=== PATIENT | female | born 1990 | race Caucasian/White ===

== ENCOUNTER → 2016-07-04 | Outpatient (REF) | payer MEDICAID, OTHER ==
[~2016-07-04] MED LIST: ACET50TA PO; COLA100C PO; IBUP-1114 PO
== END ==
LOC: M LAB REF 16:56
PROVIDERS: ATTEND Advanced Practice Midwife
DX: Z12.4 Encounter for screening for malignant neoplasm of cervix (principal); R87.613 High grade squamous intraepithelial lesion on cytologic smear of cervix (HGSIL)

== ENCOUNTER → 2016-07-22 | Outpatient (REF) | payer MEDICAID, OTHER | LOC: M LAB REF 16:56 | PROVIDERS: ATTEND Obstetrics & Gynecology | DX: R87.613 High grade squamous intraepithelial lesion on cytologic smear of cervix (HGSIL) (principal) ==

== ENCOUNTER → 2016-08-08 | Outpatient (CLI) | payer OTHER ==
--- NOTE | 2016-08-08 15:27 | REP ---
COMPLETE OB ULTRASOUND WITH DETAILED ANATOMY SCREENIN08/08/2016 Clinical history: Supervision of , other normal, second trimester anatomy screen. Comparison: 05/13/2016. First trimester ultrasound. Based on initial ultrasound she would be 19 weeks 2 days, EDC 12/31/2016. Today's study shows single intrauterine gestation in vertex position. Cervix is closed, 4.2 cm long and there is visually normal amniotic fluid volume. There is an anterior grade 0 placenta without previa or abruption. biometry. BPD 4.5 cm = 19 weeks 4 days HC 17.2 cm = 19 weeks 5 days AC 14.9 cm = 20 weeks 1 day FL 3.1 cm = 19 weeks 4 days This gives average ultrasound age of 19 weeks 4 days, EDC 12/29/2016. Estimated weight 319 grams or 11 ounces, is 68th percentile for dating based on initial ultrasound (19 weeks 2 days). anatomy screen shows heart rate 147 and regular. There is no evidence of a nuchal cord. Cranial vault, lateral ventricles, choroid plexus, thalami, cavum septum pellucidum, cerebellum, cisterna magna, nuchal fold, face and profile views, lips view, lungs, four-chamber heart view, ventricular outflow tracts, diaphragm, left-sided stomach bubble, three-vessel cord with cord insertion, kidneys and bladder, transverse and longitudinal views of the entire spine and the upper extremities seen and grossly unremarkable. Impression: 1. Single intrauterine gestation in vertex presentation with anterior grade 0 placenta without previa or abruption, visually normal amniotic fluid volume and with cervix closed 4.2 cm long. 2. Size and dates show average ultrasound age by today's study 19 weeks 4 days by initial ultrasound, 19 weeks 2 days with EDC 12/31/2016 by that study and this represents normal interval growth. Estimated weight is 68th percentile. See details above. 3. No visible anomalies. 4. Heart rate 147 and regular. Signed by Kirby Hendricks MD 08/08/2016 04:29 P
== END ==
LOC: M SMT 13:35
PROVIDERS: ATTEND Advanced Practice Midwife
DX: Z36 Encounter for antenatal screening of mother (principal); Z3A.19 19 weeks gestation of pregnancy

== ENCOUNTER 2016-09-12 05:37 | Outpatient (CLI) | payer OTHER ==
[~2016-09-12] VITALS: Ht 160 cm; Wt 87.0 kg
[~2016-09-12 05:37] MED LIST changes: -COLA100C PO; +COLA100C3 PO
[2016-09-12 05:50] VITALS: BP 107/60
[2016-09-12 05:53] VITALS: BP 107/60
[2016-09-12] MEDS ORDERED: ONDANSETRON 4 MG ORAL DISINTEGRATING TAB (S0181) SL SCH (07:15)
[2016-09-12] MEDS ORDERED: ONDANSETRON 4MG/2ML VIAL (J2405) IV ONE (07:30)
[2016-09-12] MEDS ORDERED: ONDANSETRON 4MG/2ML VIAL (J2405) As Ordered ONE (07:32)
[2016-09-12 07:50] VITALS: BP 107/62
[2016-09-12] MEDS ORDERED: PROMETHAZINE INJ 25 MG/ML VIAL (J2550) IV PRN (08:15)
[2016-09-12] MEDS ORDERED: ZOFR20TA PO (08:35)
[2016-09-12] MEDS ORDERED: PREN1TAB11 PO (08:35)
[2016-09-12] MEDS ORDERED: MULTIVITAMIN -ADULT INJECTION 10 ML, THIAMINE INJection 100 MG, FOLIC ACID 1 MG in NS 1... IV ONE (09:00)
[2016-09-12 09:06] VITALS: BP 108/71
[2016-09-12 11:23] VITALS: BP 103/58
[2016-09-12 14:15] VITALS: BP 104/64
--- NOTE | 2016-09-12 22:29 | IPN ---
DATE: 09/12/2016 REASON FOR VISIT: Nausea and vomiting. HISTORY OF PRESENT ILLNESS: This patient is a 26-year-old 3, para 2 who presents at 24 weeks 6 days estimated gestational age with acute onset of nausea and vomiting. She reports unable to tolerate any fluids and has abdominal cramping. Denies any vaginal leakage of fluid, fever, chills. Her course has been unremarkable. She initiated care in her first trimester and has been appropriate throughout. PAST MEDICAL HISTORY: None. PAST SURGICAL HISTORY: None. PAST OBSTETRICAL HISTORY: She is 3, para 2. She has had two term vaginal deliveries, proven to 9 pounds 5 ounces. SOCIAL HISTORY: Denies any alcohol, tobacco, or drug use in her . PHYSICAL EXAMINATION: Her vital signs are stable. She is afebrile. GENERAL APPEARANCE: No acute distress. LUNGS: Clear to auscultation bilaterally. CARDIOVASCULAR: Heart regular rate and rhythm. ABDOMEN: Soft, gravid, nontender. She has a reassuring heart rate tracing. The patient was provided with fluid hydration and antiemetics. After several hours of IV fluid hydration and antiemetics, she reports feeling better, was discharged home with no further emesis and improved status. She was discharged home with Phenergan orally and with instructions to followup in the obstetrical clinic in 1 week.
== END 2016-09-12 14:25 | disposition home or self-care (01) ==
LOC: M LDO 05:37
PROVIDERS: ATTEND Advanced Practice Midwife
DX: O21.2 Late vomiting of pregnancy (principal); Z3A.24 24 weeks gestation of pregnancy; O26.892 Other specified pregnancy related conditions, second trimester; R61 Generalized hyperhidrosis
CPT/HCPCS: 59025; 80306; 96374; 96375; G0480; J2405; J3411

== ENCOUNTER → 2016-10-13 | Outpatient (CLI) | payer OTHER ==
[~2016-10-13] MED LIST changes: +PREN1TAB11 PO; +ZOFR20TA PO
[2016-10-13 19:39] LABS: BASO % 0.2 % (0.0-1.0); EOS # 0.3 K/mm3 (0.0-0.50); EOS % 3.3 % (0.0-3.0); LARGE UNSTAINED CELL # 0.2 K/mm3 (0.0-0.4); LARGE UNSTAINED CELL % 2.2 % (0.0-4.0); LYMPH # 1.6 K/mm3 (1.5-6.5); LYMPH % 15.5 % (24.0-44.0); MEAN CORPUSCULAR HEMOGLOBIN 28.5 pg (27.0-33.0); MEAN CORPUSCULAR HGB CONC 32.9 g/dl (32.0-36.5); MEAN CORPUSCULAR VOLUME 86.5 fl (80.0-96.0); MONO # 0.6 K/mm3 (0.0-0.8); MONO % 5.8 % (0.0-5.0); NEUTROPHILS # 7.6 K/mm3 (1.8-7.7); PLATELET COUNT, AUTOMATED 236 k/mm3 (150-450); RED CELL DISTRIBUTION WIDTH 13.8 % (11.5-14.5); WHITE BLOOD COUNT 10.4 K/mm3 (4.0-10.0)
== END ==
LOC: M SMT 12:49
PROVIDERS: ATTEND Specialist
DX: Z34.82 Encounter for supervision of other normal pregnancy, second trimester (principal)

== ENCOUNTER → 2016-12-08 | Outpatient (REF) | payer OTHER ==
[~2016-12-08] MED LIST changes: +ACYC200C8 PO; -COLA100C3 PO; +COLA100C5 PO; +MOTR200T44 PO; +TYLE500T78 PO; +VALT500T PO
== END ==
LOC: M LAB REF 17:02
PROVIDERS: ATTEND Specialist
DX: Z34.83 Encounter for supervision of other normal pregnancy, third trimester (principal)

== ENCOUNTER 2016-12-25 06:56 | Inpatient (IN) | payer OTHER ==
[~2016-12-25] VITALS: Ht 162.6 cm; Wt 87.0 kg
[~2016-12-25 06:56] MED LIST changes: -ACYC200C8 PO; -MOTR200T44 PO; -TYLE500T78 PO; -VALT500T PO
[2016-12-25] MEDS ORDERED: LR 1,000 ML IV SCH (07:00)
[2016-12-25] MEDS ORDERED: OXYTOCIN 30 UNITS IN 0.9% NaCl 500ML IV BAG (J2590) As Ordered ONE (07:01)
[2016-12-25] MEDS ORDERED: LACTATED RINGER'S 1000 ML IV STA (07:02)
[2016-12-25 07:18] LABS: MEAN CORPUSCULAR HEMOGLOBIN 27.7 pg (27.0-33.0); MEAN CORPUSCULAR HGB CONC 33.3 g/dl (32.0-36.5); MEAN CORPUSCULAR VOLUME 83.1 fl (80.0-96.0); RED CELL DISTRIBUTION WIDTH 16.2 % (11.5-14.5); WHITE BLOOD COUNT 9.6 K/mm3 (4.0-10.0)
[2016-12-25] MEDS ORDERED: ACYC200C8 PO (07:38)
[2016-12-25] MEDS ORDERED: MEASLES,MUMPS,RUBELLA VACCINE INJ (MMR-II) (90707) SC SCH ×2 (07:45→09:00)
[2016-12-25] MEDS ORDERED: RHOGAM 300 MCG (1500 IU) INJ (J2790) IM SCH ×2 (07:45→09:00)
[2016-12-25] MEDS ORDERED: MOM 30ML SUSPENSION UDC PO PRN (07:45)
[2016-12-25] MEDS ORDERED: ACETAMINOPHEN 500 MG TAB PO PRN (07:45)
[2016-12-25] MEDS ORDERED: ANUSOL HC CREAM 30GM TOP PRN (07:45)
[2016-12-25] MEDS ORDERED: DIBUCAINE 1% OINTMENT 30GM TOP PRN (07:45)
[2016-12-25] MEDS ORDERED: DOCUSATE SODIUM 100 MG CAP PO PRN (07:45)
[2016-12-25] MEDS ORDERED: OXYTOCIN DRIP 30 UNITS in APPROPRIATE DILUENT 1 EA IV SCH (08:00)
[2016-12-25] MEDS: METHYLERGONOVINE MALEATE 0.2 MG TAB PO SCH ×4 (08:09→23:33)
[2016-12-25] MEDS: PRENATAL VITAMINS CHEWABLE TABLET PO SCH (08:11)
[2016-12-25] MEDS ORDERED: miSOPROStol 200 MCG TAB (S0191) PR ONE (09:00)
[2016-12-25] MEDS ORDERED: ACYCLOVIR 200 MG CAPSULE PO SCH (09:00)
[2016-12-25] MEDS: IBUPROFEN 800 MG TAB PO PRN (10:06)
[2016-12-25] MEDS ORDERED: VALT500T PO (11:28)
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
[2016-12-25 18:43] VITALS: BP 114/66
[2016-12-25] MEDS: valACYclovir HCL 500 MG TAB PO SCH (20:26)
--- NOTE | 2016-12-25 20:26 | DN ---
DATE: 12/25/2016 Artificial rupture of membranes clear fluid 0708 hours. Rim of cervix reduced with maternal bearing down efforts. Fully dilated 0715 hours. Viable male child delivered SUKHWINDER at 0725 hours. Spontaneous respirations with stimulation. Transitioned on maternal abdomen. Cord doubly clamped and cut once pulsations ceased. scores 9 and 10. Placenta Stout intact with three-vessel cord and trailing membranes at 0729 hours. Fundus firmed with massage and IV Pitocin bolus. Brisk bleeding persisted. Misoprostol 1000 mcg DC given with control of bleeding. Perineum intact. Estimated blood loss 700 mL. Infant weight 7 pounds 10 ounces, 3468 grams. Sponge, sharp and instrument count correct. MTDD
[2016-12-26] MEDS: METHYLERGONOVINE MALEATE 0.2 MG TAB PO SCH (05:33)
[2016-12-26 06:30] VITALS: BP 106/59
[2016-12-26] MEDS: valACYclovir HCL 500 MG TAB PO SCH ×2 (07:58→20:20)
[2016-12-26] MEDS: IBUPROFEN 800 MG TAB PO PRN (07:58)
[2016-12-26] MEDS: PRENATAL VITAMINS CHEWABLE TABLET PO SCH (07:59)
[2016-12-26] MEDS ORDERED: METHYLERGONOVINE MALEATE 0.2 MG TAB PO PRN (09:45)
[2016-12-26 14:00] VITALS: BP 100/57
[2016-12-26 18:28] VITALS: BP 112/68
[2016-12-27 05:38] VITALS: BP 96/63
[2016-12-27] MEDS ORDERED: MOTR200T44 PO (07:46)
[2016-12-27] MEDS ORDERED: TYLE500T78 PO (07:46)
[2016-12-27] MEDS: valACYclovir HCL 500 MG TAB PO SCH (09:00)
[2016-12-27] MEDS: PRENATAL VITAMINS CHEWABLE TABLET PO SCH (12:10)
[2017-01-03 00:08] LABS: GC Carboxy THC 204 ng/mL (Cutoff=10)
== END 2016-12-27 12:50 | disposition home or self-care (01) | DRG 560 ==
LOC: M LDO 06:56 → M LDI 07:01 → M OBS 08:47
PROVIDERS: ADMIT Obstetrics & Gynecology; ATTEND Advanced Practice Midwife
PROC: 10E0XZZ Delivery of Products of Conception, External Approach (ICD-10-PCS; principal; 2016-12-25)
PROC: 10907ZC Drainage of Amniotic Fluid, Therapeutic from Products of Conception, Via Natural or Artificial Opening (ICD-10-PCS; 2016-12-25)
DX: O98.32 Other infections with a predominantly sexual mode of transmission complicating childbirth (principal); A60.09 Herpesviral infection of other urogenital tract; Z3A.39 39 weeks gestation of pregnancy; Z37.0 Single live birth

== ENCOUNTER → 2017-03-23 | Outpatient (CLI) | payer SELFPAY ==
[~2017-03-23] MED LIST changes: +ACYC200C8 PO; +MOTR200T44 PO; +TYLE500T78 PO; +VALT500T PO
== END ==
LOC: M OUTALCOH 10:57
PROVIDERS: ATTEND Psychiatry & Neurology Psychiatry
DX: F12.20 Cannabis dependence, uncomplicated (principal)

== ENCOUNTER 2017-05-05 10:00 | Outpatient (RCR) | payer MEDICAID, SELFPAY | END 2017-05-07 | LOC: M OUTALCOH 10:00 | PROVIDERS: ATTEND Psychiatry & Neurology Psychiatry | DX: F12.20 Cannabis dependence, uncomplicated (principal) ==

== ENCOUNTER 2017-05-18 10:02 | Emergency (ER) | payer MEDICAID ==
[~2017-05-18] VITALS: Ht 160 cm; Wt 82.6 kg
[2017-05-18 10:11] VITALS: BP 131/68
[2017-05-19] MEDS ORDERED: ZOFR4TAB3 PO (02:54)
[2017-05-19] MEDS ORDERED: REGL10TA6 PO (02:54)
== END 2017-05-18 12:08 | disposition left against medical advice (07) ==
LOC: M ED 10:02 → EDBD 10:02 → M ED 12:08
DX: R11.2 Nausea with vomiting, unspecified (principal); Z53.21 Procedure and treatment not carried out due to patient leaving prior to being seen by health care provider

== ENCOUNTER 2017-05-19 00:21 | Emergency (ER) | payer MEDICAID ==
[~2017-05-19] VITALS: Ht 160 cm; Wt 87.8 kg
[2017-05-19] MEDS ORDERED: ONDANSETRON 4 MG ORAL DISINTEGRATING TAB (S0181) PO ONE (02:00)
[2017-05-19 02:11] LABS: CONTROL LINE UCG INT CTR LINE PRESENT
[2017-05-19] MEDS ORDERED: METOCLOPRAMIDE INJ 10MG/2ML VIAL (J2765) IM ONE (02:45)
[2017-05-19] MEDS ORDERED: ZOFR4TAB3 PO (02:54)
[2017-05-19] MEDS ORDERED: REGL10TA6 PO (02:54)
[2017-05-19 03:08] VITALS: BP 128/72
[2017-05-20] MEDS ORDERED: MACR100C43 PO (04:44)
== END 2017-05-19 03:20 | disposition home or self-care (01) ==
LOC: M ED 00:21
DX: O26.899 Other specified pregnancy related conditions, unspecified trimester (principal); Z88.8 Allergy status to other drugs, medicaments and biological substances; O99.519 Diseases of the respiratory system complicating pregnancy, unspecified trimester; J30.89 Other allergic rhinitis; O99.320 Drug use complicating pregnancy, unspecified trimester; F12.20 Cannabis dependence, uncomplicated; Z3A.00 Weeks of gestation of pregnancy not specified
CPT/HCPCS: 36415; 81025; 84703; 96372; 99284; J2765

== ENCOUNTER 2017-05-19 23:49 | Emergency (ER) | payer MEDICAID ==
[~2017-05-19] VITALS: Ht 162.6 cm; Wt 70.5 kg
[~2017-05-19 23:49] MED LIST changes: +REGL10TA6 PO; +ZOFR4TAB3 PO
[2017-05-20] MEDS ORDERED: METOCLOPRAMIDE INJ 10MG/2ML VIAL (J2765) IV ONE (00:45)
[2017-05-20] MEDS ORDERED: NS 1,000 ML IV ONE (00:45)
[2017-05-20 01:16] LABS: ANION GAP 12 MEQ/L (8-16); BLOOD UREA NITROGEN 10 MG/DL (7-18); CARBON DIOXIDE LEVEL 27 MEQ/L (21-32); CHLORIDE LEVEL 102 MEQ/L (98-107); CREATININE FOR GFR 0.71 MG/DL (0.55-1.02); GLOMERULAR FILTRATION RATE > 60.0 (>60); GLUCOSE, FASTING 88 MG/DL (70-105); POTASSIUM SERUM 3.4 MEQ/L (3.5-5.1); SODIUM LEVEL 141 MEQ/L (136-145)
[2017-05-20] MEDS ORDERED: ONDANSETRON 4MG/2ML VIAL (J2405) IV ONE (01:30)
[2017-05-20 02:00] LABS: MUCUS, URINE RFX LARGE (NEGATIVE); SPECIFIC GRAVITY UR AUTO RFX 1.031 (1.002-1.035); SQUAM EPITHELIAL CELL UR AURFX 15 /HPF (0-6)
[2017-05-20] MEDS ORDERED: MACR100C43 PO (04:44)
[2017-05-20 04:53] VITALS: BP 110/72
[2017-05-21] MEDS ORDERED: METO10TA2 PO (08:10)
[2017-05-21] MEDS ORDERED: MACR100C43 PO (08:10)
[2017-05-21] MEDS ORDERED: ONDA4TAB6 PO (08:10)
== END 2017-05-20 05:02 | disposition home or self-care (01) ==
LOC: M ED 23:49 → EDBD 23:49 → M ED 05-20 05:02
DX: O21.0 Mild hyperemesis gravidarum (principal); Z88.8 Allergy status to other drugs, medicaments and biological substances; O99.511 Diseases of the respiratory system complicating pregnancy, first trimester; J30.89 Other allergic rhinitis; Z3A.08 8 weeks gestation of pregnancy
CPT/HCPCS: 80048; 81001; 87086; 96374; 96375; 99284; J2405; J2765

== ENCOUNTER 2017-05-21 03:32 | Day surgery (SDC) | payer MEDICAID ==
[~2017-05-21] VITALS: Ht 160 cm; Wt 82.7 kg
[~2017-05-21 03:32] MED LIST changes: +MACR100C43 PO
[2017-05-21] MEDS ORDERED: ONDANSETRON 4MG/2ML VIAL (J2405) IV ONE (04:00)
[2017-05-21] MEDS ORDERED: NS 1,000 ML IV ONE (04:00)
[2017-05-21] MEDS ORDERED: METOCLOPRAMIDE INJ 10MG/2ML VIAL (J2765) IV ONE (04:00)
[2017-05-21 04:20] LABS: BASO % 0.2 % (0.0-1.0); EOS % 0.5 % (0.0-3.0); IMMATURE GRANULOCYTE % 0.2 % (0-0); LYMPH # 2.2 10^3/uL (1.5-6.5); LYMPH % 26.5 % (24.0-44.0); MEAN CORPUSCULAR HGB CONC 32.9 g/dl (32.0-36.5); MEAN CORPUSCULAR VOLUME 82.1 fl (80.0-96.0); MONO # 0.8 10^3/uL (0.0-0.8); MONO % 9.4 % (0.0-5.0); NEUTROPHILS # 5.3 10^3/uL (1.8-7.7); NEUTROPHILS % 63.2 % (36.0-66.0); PLATELET COUNT, AUTOMATED 383 10^3/uL (150-450); RED CELL DISTRIBUTION WIDTH 14.2 % (11.5-14.5); WHITE BLOOD COUNT 8.3 10^3/uL (4.0-10.0)
[2017-05-21] MEDS ORDERED: MORPHINE 4 MG/ML 1ML SYRINGE IV PRN (04:45)
[2017-05-21 05:05] LABS: ALBUMIN 3.6 GM/DL (3.2-5.2); ALBUMIN/GLOBULIN RATIO 1.03 (1.00-1.93); ALKALINE PHOSPHATASE 52 U/L (45-117); ALT/SGPT 65 U/L (12-78); ANION GAP 11 MEQ/L (8-16); AST/SGOT 34 U/L (7-37); BILIRUBIN,DIRECT 0.4 MG/DL (0.0-0.2); BILIRUBIN,TOTAL 1.4 MG/DL (0.2-1.0); BLOOD UREA NITROGEN 10 MG/DL (7-18); CALCIUM LEVEL 8.3 MG/DL (8.5-10.1); CARBON DIOXIDE LEVEL 23 MEQ/L (21-32); CHLORIDE LEVEL 106 MEQ/L (98-107); GLOMERULAR FILTRATION RATE > 60.0 (>60); GLUCOSE, FASTING 87 MG/DL (70-105); SODIUM LEVEL 140 MEQ/L (136-145); TOTAL PROTEIN 7.1 GM/DL (6.4-8.2)
[2017-05-21 05:18] LABS: METHADONE URINE NEGATIVE (NEGATIVE)
[2017-05-21] MEDS ORDERED: POTASSIUM CHLORIDE 10 MEQ SR TABLET PO ONE (06:00)
--- NOTE | 2017-05-21 06:20 | REPUSA ---
CLINICAL HISTORY: Abdominal pain. TECHNIQUE: Realtime sonographic images were obtained in multiple projections. COMMENTS: The liver is of normal size, parenchyma demonstrates normal echogenicity. No discrete hepatic mass is seen. There is no intra or extrahepatic biliary ductal dilatation. CBD measures 3.2mm. The gallbladder is p hysiologically distended/ sludge filled. The gallbladder wall is not thickened measuring 1.2 mm and t here is no pericholecystic fluid. There is no abdominal ascites. The right kidney measures 10.2 x 4.5 x 5.4 cm, free of hydronephrosis. IMPRESSION: Sludge filled gallbladder. Thank you for your kind referral of this patient.
--- NOTE | 2017-05-21 06:30 | REPUSA ---
CLINICAL HISTORY: determination. TECHNIQUE: Transabdominal and endovaginal ultrasound of the pelvis was performed. FINDINGS: There is an intrauterine irregular gestational sac. Mean gestational sac diameter is 2.26 cm. This corresponds to an estimated gestation age of 7 weeks and 2 days. There is a 2.8x3.5x0.8 cm subchorionic hemorrhage. No pole is identified in the gestational sac. The right ovary measures 2.6x1.8x2.7 cm. The left ovary measures 2.6x1.6x1.3 cm. Normal bilateral ovarian flow. IMPRESSION: Irregular gestational sac. No pole is identified. Subchorionic hemorrhage. Normal ovaries.
[2017-05-21] MEDS ORDERED: METO10TA2 PO (08:10)
[2017-05-21] MEDS ORDERED: MACR100C43 PO (08:10)
[2017-05-21] MEDS ORDERED: ONDA4TAB6 PO (08:10)
[2017-05-21] MEDS ORDERED: KCL 20MEQ IN D5/0.45NS 1000ML 1,000 ML IV SCH (08:15)
[2017-05-21] MEDS ORDERED: PROMETHAZINE INJ 25 MG/ML VIAL (J2550) IV PRN (08:15)
[2017-05-21] MEDS ORDERED: ACETAMINOPHEN 500 MG TAB PO PRN (08:15)
[2017-05-21] MEDS ORDERED: ONDANSETRON 4MG/2ML VIAL (J2405) IV PRN ×2 (08:15→17:45)
[2017-05-21 09:48] VITALS: BP 103/48
[2017-05-21] MEDS ORDERED: LIDOCAINE 1% SDV INJ 30 ML VIAL As Ordered ONE (15:51)
[2017-05-21] MEDS ORDERED: LIDOCAINE 2% INJ 100 MG/5 ML SDV (FOR ANES.) As Ordered ONE (17:13)
[2017-05-21] MEDS ORDERED: fentaNYL 100 MCG/2 ML INJECTION (J3010) As Ordered ONE (17:13)
[2017-05-21] MEDS ORDERED: MIDAZOLAM INJ 2 MG/2 ML VIAL (J2250) As Ordered ONE (17:13)
[2017-05-21] MEDS ORDERED: PROPOFOL 200 MG/20 ML VIAL As Ordered ONE (17:13)
[2017-05-21] MEDS ORDERED: KETOROLAC 60 MG/2 ML VIAL (J1885) As Ordered ONE (17:13)
[2017-05-21] MEDS ORDERED: ONDANSETRON 4MG/2ML VIAL (J2405) As Ordered ONE (17:13)
[2017-05-21] MEDS ORDERED: LR 1,000 ML IV SCH ×2 (17:45)
[2017-05-21] MEDS ORDERED: METOCLOPRAMIDE INJ 10MG/2ML VIAL (J2765) IV PRN (17:45)
[2017-05-21] MEDS ORDERED: MEPERIDINE INJ 25 MG/ML VIAL (J2175) IV PRN (17:45)
[2017-05-21] MEDS ORDERED: PERCOCET 5MG/325MG TAB PO PRN (17:45)
[2017-05-21] MEDS ORDERED: fentaNYL 100 MCG/2 ML INJECTION (J3010) IV PRN (17:45)
[2017-05-21] MEDS ORDERED: ACETAMINOPHEN 500 MG TAB PO ONE (17:45)
[2017-05-21 18:59] VITALS: BP 128/67
--- NOTE | 2017-05-21 22:18 | RO ---
DATE OF PROCEDURE: 05/21/2017 PREOPERATIVE DIAGNOSIS: Embryonic demise. POSTDELIVERY DIAGNOSIS: Embryonic demise. PROCEDURE: Dilation, evacuation and curettage (D, E and C) BOOSTER OPERATOR: Shakir Ruiz MD ANESTHESIA: Local sedation. ESTIMATED BLOOD LOSS: Minimal. FINDINGS: Moderate amount of products of conception. OPERATIVE SUMMARY: The patient was taken to the operating room, where IV sedation was given. She was prepped and draped in a sterile fashion, in the dorsal lithotomy position. A speculum was placed in the vagina. The cervix was injected circumferentially with 20 mL of 1% lidocaine. The anterior lip of the cervix was grasped with tenaculum. Cervix was dilated with tapered dilators. A #8 mm suction curette was placed through the internal os. The suction device was activated and the curette was gently rotated and the products of conception were coming through the suction tubing. Sharp curettage was performed. Uterine cavity seemed to be empty. Sponge and instrument counts were correct.
== END 2017-05-21 19:15 | disposition home or self-care (01) ==
LOC: EDBD 03:32 → M ED 03:32 → M SDC 07:30 → M PED 10:01 → M SDC 19:15
PROVIDERS: ATTEND Specialist
DX: O02.1 Missed abortion (principal); F12.90 Cannabis use, unspecified, uncomplicated
CPT/HCPCS: 59820; 76705; 76801; 76817; 80048; 80076; 80307; 81001; 83690; 84702; 85025; 88305; 96374; 96375; 99284; J1885; J2250; J2405; J2765; J3010

== ENCOUNTER 2017-05-26 10:00 | Outpatient (RCR) | payer SELFPAY | END 2017-06-07 | LOC: M OUTALCOH 06-02 10:00 | DX: F12.20 Cannabis dependence, uncomplicated (principal) ==

== ENCOUNTER 2017-06-10 16:00 | Outpatient (RCR) | payer MEDICAID | END 2017-07-08 | LOC: M OUTALCOH 06-16 10:00 | DX: F12.20 Cannabis dependence, uncomplicated (principal) ==

== ENCOUNTER → 2017-06-16 | Outpatient (REF) | payer MEDICAID | LOC: M LAB REF 09:06 | DX: R87.623 High grade squamous intraepithelial lesion on cytologic smear of vagina (HGSIL) (principal) ==

== ENCOUNTER 2017-07-14 16:00 | Outpatient (RCR) | payer MEDICAID | END 2017-08-05 | LOC: M OUTALCOH 07-21 16:00 | DX: F12.20 Cannabis dependence, uncomplicated (principal) ==

== ENCOUNTER 2017-08-06 14:03 | Outpatient (RCR) | payer MEDICAID | END 2017-09-05 | LOC: M OUTALCOH 14:03 | DX: F12.20 Cannabis dependence, uncomplicated (principal) | CPT/HCPCS: 90834 ==

== ENCOUNTER 2017-08-30 14:40 | Emergency (ER) | payer OTHER, MEDICAID ==
[2017-08-30] MEDS: ONDANSETRON 4MG/2ML VIAL (J2405) IV ×4 (14:58→16:05)
[2017-08-30 14:59] LABS: BASO % 0.1 % (0.0-1.0); EOS # 0.1 10^3/uL (0.0-0.50); EOS % 0.9 % (0.0-3.0); HEMATOCRIT 37.1 % (36.0-47.0); HEMOGLOBIN 12.4 g/dl (12.0-16.0); IMMATURE GRANULOCYTE % 0.4 % (0-3.0); LYMPH # 1.6 10^3/uL (1.5-6.5); MEAN CORPUSCULAR HEMOGLOBIN 28.5 pg (27.0-33.0); MEAN CORPUSCULAR HGB CONC 33.4 g/dl (32.0-36.5); MEAN CORPUSCULAR VOLUME 85.3 fl (80.0-96.0); MONO # 0.7 10^3/uL (0.0-0.8); MONO % 6.9 % (0.0-5.0); NEUTROPHILS # 7.4 10^3/uL (1.8-7.7); NEUTROPHILS % 75.7 % (36.0-66.0); PLATELET COUNT, AUTOMATED 297 10^3/uL (150-450); RED BLOOD COUNT 4.35 10^6/uL (4.00-5.40); RED CELL DISTRIBUTION WIDTH 13.8 % (11.5-14.5); WHITE BLOOD COUNT 9.8 10^3/uL (4.0-10.0)
[2017-08-30] MEDS: NS 1,000 ML IV ×2 (15:00)
[2017-08-30 15:40] LABS: ANION GAP 7 MEQ/L (8-16); BLOOD UREA NITROGEN 7 MG/DL (7-18); CARBON DIOXIDE LEVEL 25 MEQ/L (21-32); CHLORIDE LEVEL 107 MEQ/L (98-107); CREATININE FOR GFR 0.65 MG/DL (0.55-1.30); GLOMERULAR FILTRATION RATE > 60.0 (>60); GLUCOSE, FASTING 87 MG/DL (70-100); HCG, SERUM QUANTITATIVE 77794 MIU/ML; POTASSIUM SERUM 3.4 MEQ/L (3.5-5.1); SODIUM LEVEL 139 MEQ/L (136-145)
[2017-08-30 16:33] LABS: KETONE, URINE AUTO RFX 2+ mg/dL (NEGATIVE); MUCUS, URINE RFX SMALL (NEGATIVE); NITRITE, URINE AUTO RFX NEGATIVE (NEGATIVE); RBC, URINE AUTO RFX 1 /HPF (0-3); SQUAM EPITHELIAL CELL UR AURFX 3 /HPF (0-6); WBC, URINE AUTO RFX 2 /HPF (0-3)
[2017-08-30 16:38] LABS: LEUKOCYTE ESTERASE UR AUTO RFX 1+ (NEGATIVE)
[2017-08-30] MEDS: METOCLOPRAMIDE INJ 10MG/2ML VIAL (J2765) IV ×4 (17:00→18:15)
[2017-08-30] MEDS: METOCLOPRAMIDE 5 MG TAB PO ×2 (17:15)
[2017-08-30] MEDS: D5W/0.9% SODIUM CHLORIDE 1,000 ML IV ×2 (18:00)
== END 2017-08-30 19:08 | disposition home or self-care (01) ==
LOC: M ED 14:40
DX: O21.0 Mild hyperemesis gravidarum (principal); Z88.1 Allergy status to other antibiotic agents; Z3A.08 8 weeks gestation of pregnancy
CPT/HCPCS: J2405

== ENCOUNTER → 2017-10-15 | Outpatient (CLI) | payer OTHER ==
[2017-10-15 19:45] LABS: BASO % 0.2 % (0.0-1.0); EOS # 0.4 10^3/uL (0.0-0.50); EOS % 3.4 % (0.0-3.0); HEMATOCRIT 35.2 % (36.0-47.0); HEMOGLOBIN 11.8 g/dl (12.0-15.5); IMMATURE GRANULOCYTE % 0.4 % (0-3.0); LYMPH % 15.5 % (24.0-44.0); MEAN CORPUSCULAR HEMOGLOBIN 29.2 pg (27.0-33.0); MEAN CORPUSCULAR HGB CONC 33.5 g/dl (32.0-36.5); MEAN CORPUSCULAR VOLUME 87.1 fl (80.0-96.0); MONO # 0.8 10^3/uL (0.0-0.8); MONO % 6.4 % (0.0-5.0); NEUTROPHILS # 9.4 10^3/uL (1.8-7.7); NEUTROPHILS % 74.1 % (36.0-66.0); PLATELET COUNT, AUTOMATED 314 10^3/uL (150-450); RED BLOOD COUNT 4.04 10^6/uL (4.00-5.40); RED CELL DISTRIBUTION WIDTH 13.9 % (11.5-14.5); WHITE BLOOD COUNT 12.7 10^3/uL (4.0-10.0)
[2017-10-16 10:03] LABS: RUBELLA IgG QUALITATIVE IMMUNE (IMMUNE)
[2017-10-16 10:08] LABS: HBsAg Prenatal NEGATIVE (NEGATIVE)
[2017-10-16 10:32] LABS: HEPATITIS C VIRUS ABY INDEX 0.1 INDEX (<0.8)
[2017-10-16 10:33] LABS: HIV 1&2 SCREEN CENTAUR NEGATIVE (NEGATIVE)
== END ==
LOC: M SMT 13:02
DX: Z36.89 Encounter for other specified antenatal screening (principal); Z3A.10 10 weeks gestation of pregnancy
CPT/HCPCS: 86762

== ENCOUNTER → 2017-10-19 | Outpatient (REF) | payer OTHER ==
[2017-10-19 15:17] LABS: CHLAMYDIA DNA AMPLIFICATION NEGATIVE (NEGATIVE); GC DNA AMPLIFICATION NEGATIVE (NEGATIVE)
== END ==
LOC: M LAB REF 13:05
DX: Z34.82 Encounter for supervision of other normal pregnancy, second trimester (principal)

== ENCOUNTER → 2017-12-10 | Outpatient (CLI) | payer MEDICAID, SELFPAY, OTHER | LOC: M RAD 16:59 | DX: Z34.82 Encounter for supervision of other normal pregnancy, second trimester (principal); Z36.89 Encounter for other specified antenatal screening; Z3A.22 22 weeks gestation of pregnancy | CPT/HCPCS: 76816 ==

== ENCOUNTER → 2018-01-13 | Outpatient (CLI) | payer MEDICAID | LOC: M SMT 13:01 | DX: Z34.82 Encounter for supervision of other normal pregnancy, second trimester (principal) ==

== ENCOUNTER → 2018-01-13 | Outpatient (CLI) | payer MEDICAID ==
[2018-01-13 17:38] LABS: GLUCOSE CHALLENGE TEST 1 HOUR 100 MG/DL (LESS THAN 140)
[2018-01-13 17:48] LABS: BASO % 0.1 % (0.0-1.0); EOS # 0.1 10^3/uL (0.0-0.50); EOS % 1.5 % (0.0-3.0); HEMATOCRIT 31.7 % (36.0-47.0); IMMATURE GRANULOCYTE % 0.4 % (0-3.0); LYMPH # 1.6 10^3/uL (1.5-6.5); MEAN CORPUSCULAR HEMOGLOBIN 26.7 pg (27.0-33.0); MEAN CORPUSCULAR HGB CONC 31.5 g/dl (32.0-36.5); MEAN CORPUSCULAR VOLUME 84.8 fl (80.0-96.0); MONO # 0.5 10^3/uL (0.0-0.8); MONO % 6.5 % (0.0-5.0); NEUTROPHILS # 5.9 10^3/uL (1.8-7.7); NEUTROPHILS % 72.5 % (36.0-66.0); PLATELET COUNT, AUTOMATED 243 10^3/uL (150-450); RED BLOOD COUNT 3.74 10^6/uL (4.00-5.40); RED CELL DISTRIBUTION WIDTH 14.2 % (11.5-14.5); WHITE BLOOD COUNT 8.2 10^3/uL (4.0-10.0)
[2018-01-13 21:56] LABS: CHLAMYDIA DNA AMPLIFICATION NEGATIVE (NEGATIVE); GC DNA AMPLIFICATION NEGATIVE (NEGATIVE)
== END ==
LOC: M SMT 14:02
DX: Z34.82 Encounter for supervision of other normal pregnancy, second trimester (principal); Z36.89 Encounter for other specified antenatal screening
CPT/HCPCS: 82950

== ENCOUNTER → 2018-02-19 | Outpatient (REF) | payer MEDICAID | LOC: M LAB REF 16:58 | DX: Z34.83 Encounter for supervision of other normal pregnancy, third trimester (principal); Z36.89 Encounter for other specified antenatal screening | CPT/HCPCS: 87086 ==

== ENCOUNTER → 2018-03-03 | Outpatient (CLI) | payer MEDICAID ==
[2018-03-03 15:03] LABS: HEPATITIS A ANTIBODY IGM NEGATIVE (NEGATIVE); HEPATITIS B CORE ANTIBODY IGM NEGATIVE (NEGATIVE); HEPATITIS B SURFACE ANTIGEN NEGATIVE (NEGATIVE); HIV 1&2 SCREEN CENTAUR NEGATIVE (NEGATIVE)
[2018-03-03 15:03] LABS: HEPATITIS C VIRUS ABY INDEX 0.2 INDEX (<0.8)
[2018-03-03 16:30] LABS: CHLAMYDIA DNA AMPLIFICATION NEGATIVE (NEGATIVE); GC DNA AMPLIFICATION NEGATIVE (NEGATIVE)
== END ==
LOC: M SMT 11:06
DX: Z34.83 Encounter for supervision of other normal pregnancy, third trimester (principal); Z36.89 Encounter for other specified antenatal screening
CPT/HCPCS: 87340

== ENCOUNTER → 2018-03-17 | Outpatient (REF) | payer MEDICAID | LOC: M LAB REF 17:26 | DX: Z34.83 Encounter for supervision of other normal pregnancy, third trimester (principal) ==

== ENCOUNTER 2018-03-24 11:14 | Outpatient (CLI) | payer MEDICAID, SELFPAY | END 2018-03-24 12:15 | disposition home or self-care (01) | LOC: M LDO 11:14 | DX: O47.1 False labor at or after 37 completed weeks of gestation (principal); Z3A.37 37 weeks gestation of pregnancy | CPT/HCPCS: 59025 ==

== ENCOUNTER → 2018-06-17 | Outpatient (REF) | payer OTHER ==
[~2018-06-17] MED LIST changes: -ACET50TA PO; +HYDR-643 PO; +MAPA500T2 PO; +METO10TA2 PO; +ONDA4TAB6 PO; +REGL5TAB2 PO; +SERT50TA PO; +TRAZO50TA PO; -ZOFR20TA PO; +ZOFR4TAB14 PO; +ZOFR4TAB16 PO; -ZOFR4TAB3 PO; +ZOLO25TA PO
== END ==
LOC: M LAB REF 17:22
PROVIDERS: ATTEND Advanced Practice Midwife
DX: Z12.4 Encounter for screening for malignant neoplasm of cervix (principal)

== ENCOUNTER 2018-06-22 10:09 | Inpatient (IN) | payer MEDICAID, OTHER ==
[~2018-06-22] VITALS: Ht 160 cm; Wt 77.9 kg
[~2018-06-22 10:09] MED LIST changes: -HYDR-643 PO; -SERT50TA PO; -TRAZO50TA PO; -ZOLO25TA PO
[2018-06-22] MEDS ORDERED: ZOLO25TA PO (10:17)
[2018-06-22 10:40] LABS: HEMATOCRIT 39.5 % (36.0-47.0); HEMOGLOBIN 12.9 g/dl (12.0-15.5); MEAN CORPUSCULAR HGB CONC 32.7 g/dl (32.0-36.5); MEAN CORPUSCULAR VOLUME 85.7 fl (80.0-96.0); PLATELET COUNT, AUTOMATED 264 10^3/uL (150-450); RED BLOOD COUNT 4.61 10^6/uL (4.00-5.40); WHITE BLOOD COUNT 7.1 10^3/uL (4.0-10.0)
[2018-06-22 10:54] LABS: HCG, SERUM QUALITATIVE NEGATIVE (NEGATIVE)
[2018-06-22 11:10] LABS: ALT/SGPT 24 U/L (12-78); BILIRUBIN,DIRECT 0.3 MG/DL (0.0-0.2); BILIRUBIN,TOTAL 1.2 MG/DL (0.2-1.0); BLOOD UREA NITROGEN 10 MG/DL (7-18); CARBON DIOXIDE LEVEL 22 MEQ/L (21-32); CHLORIDE LEVEL 109 MEQ/L (98-107); CREATININE FOR GFR 0.81 MG/DL (0.55-1.30); GLOMERULAR FILTRATION RATE > 60.0 (>60); GLUCOSE, FASTING 94 MG/DL (70-100); POTASSIUM SERUM 3.7 MEQ/L (3.5-5.1); SALICYLATE LEVEL < 1.7 MG/DL (5.0-30.0); SODIUM LEVEL 141 MEQ/L (136-145); THYROID STIMULATING HORMONE 0.414 uIU/ML (0.358-3.740)
[2018-06-22 11:11] LABS: ACETAMINOPHEN LEVEL < 2.0 UG/ML (10.0-30.0); ETHYL ALCOHOL (ETHANOL) < 0.003 % (0.000-0.010)
[2018-06-22 12:46] LABS: AMPHETAMINES LEVEL URINE NEGATIVE (NEGATIVE); BARBITURATES URINE NEGATIVE (NEGATIVE); BENZODIAZEPINES URINE NEGATIVE (NEGATIVE); CANNABINOIDS URINE POSITIVE (NEGATIVE); COCAINE METABOLITE URINE NEGATIVE (NEGATIVE); METHADONE URINE NEGATIVE (NEGATIVE); OPIATES URINE NEGATIVE (NEGATIVE); PHENCYCLIDINE URINE NEGATIVE (NEGATIVE)
[2018-06-22] MEDS ORDERED: OLANZapine ORAL DISINTEGRATING TAB 5MG PO PRN (18:45)
[2018-06-22] MEDS ORDERED: MAALOX 30 ML SUSP *UDC PO PRN (18:45)
[2018-06-22] MEDS ORDERED: MOM 30ML SUSPENSION UDC PO PRN (18:45)
[2018-06-22] MEDS ORDERED: ACETAMINOPHEN TAB 650MG DOSE (2X325MG) PO PRN (18:45)
[2018-06-22 21:50] VITALS: BP 122/75
[2018-06-23 06:33] VITALS: BP 117/60
[2018-06-23] MEDS: SERTRALINE HCL 25 MG TABLET PO SCH (08:09)
--- NOTE | 2018-06-23 10:58 | HPEPDOC ---
[facility] Medical History & Physical Date of Admission Jun 22, 2018 History and Physical PCP: None ATTENDING: Dr. Gem Sharma HPI: 28 yo F admitted to [facility] for unspecified depressive disorder, being m edically examined today. No acute medical complaints today. Denies any fevers, chills, weakness, fatigue, LANDIS, CP, SOB, cough, palpitations, abdominal pain, N/V/D or changes in bowel or bladder habits. PMHx: Anxiety Depression Self-harm, cutting. PSHX: D&C 2016 SOCHX: Resides in: [facility] Marital Status: Single Kids: 4 Employment: Unemployed Tobacco use: Denies ETOH: Denies Illicit Drugs: Denies IV Drug Use: Denies Tattoos done unprofessionally: 2 FAMHX: Mother: Alive, history of colon cancer Father: Alive, well Siblings: 2 brothers, one sister Alive, well Children: Alive, well Unexpected deaths due to medical reasons: None. ROS: As noted in HPI, otherwise 11pt ROS of systems reviewed and remarkable only for LMP 06/20/18 PE: GEN: 28 yo F, appears stated age. Well-nourished, well developed. No acute distress. Alert and oriented x 3. Pleasant, interactive. HEENT: Normocephalic, atraumatic. Pupils are equal, round, and reactive to light. Extraocular movements are intact. No nystagmus appreciated. Sclera are nonicteric. Conjunctiva without injection. Nose midline. Nasal turbinates without bogginess. EACs both patent BL. TMs both visualized and heredia with good cone of light, no bulging or erythema. No facial asymmetry. Moist mucous membranes. Dentition fair. Pharynx pink and moist, no cobblestoning. Neck supple, trachea midline. No lymphadenopathy or thyromegaly appreciated. CHEST: Regular rate and rhythm, +S1, +S2 LUNGS: Clear to auscultation bilaterally. No wheezes, rales, or rhonchi. Breathing appears symmetric and easy. Patient is speaking in full sentences. No accessory muscle use. ABD: Round, soft, non-tender, non-distended. +Bowel sounds throughout. No rebound or guarding. No costovertebral angle tenderness. EXT: Pulses 2+ bilaterally dorsalis pedis and radial. No lower extremity edema appreciated. SKIN: [place], dry, warm. Capillary refill <2sec. No rashes. Superficial cuts are noted left forearm, no erythema or drainage. NEURO: Alert and oriented x 3. Cranial nerves III-XII are intact. No focal deficits appreciated. EKG: Pending A&P: 28 yo F admitted to [facility] for unspecified depressive disorder 1. Psych. Plan per Psychiatry. Obtain baseline EKG to assure the safety of psychiatric medications as they can prolong the QT interval. 2. Tattoos done unprofessionally. Patient agrees to HIV and hepatitis screening. 3. Superficial lacerations. Appear to be healing. No signs of infection. Keep the areas clean and dry. Dry dressing if needed. 4. Follow up with PCP on discharge. 5. Staff member Sandhya BRANCH present throughout exam. Vital Signs Vital Signs Date Time Temp Pulse Resp B/P (MAP) Pulse Ox O2 Delivery O2 Flow Rate FiO2 06/23/18 08:17 Room Air 06/23/18 06:33 97.1 59 14 117/60 (79) 06/22/18 21:50 97 Laboratory Data Labs 24H Laboratory Tests 2 06/22/18 11:39: Urine Amphetamines Screen NEGATIVE, Urine Benzodiazepines Screen NEGATIVE, Urine Opiates Screen NEGATIVE, Urine Methadone Screen NEGATIVE, Urine Barbiturates Screen NEGATIVE, Urine Phencyclidine Screen NEGATIVE, Urine Cocaine Metabolite Screen NEGATIVE, Urine Cannabinoids Screen POSITIVEH Home Medications Scheduled Sertraline Hcl (Zoloft) 25 Mg Tab, 25 MG PO DAILY Allergies Coded Allergies: Cephalosporins (Verified Allergy, Mild, IRRITABILITY, rash, 12/25/16) Dust (Verified Allergy, Unknown, 10/29/11) Isa Mcdermott Jun 23, 2018 10:58
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
[2018-06-23] MEDS ORDERED: hydrOXYzine 10 MG TAB PO PRN (13:15)
[2018-06-23] MEDS ORDERED: traZODone 50 MG TAB PO PRN (13:15)
[2018-06-23 13:25] LABS: HEPATITIS A ANTIBODY IGM NEGATIVE (NEGATIVE); HEPATITIS B CORE ANTIBODY IGM NEGATIVE (NEGATIVE); HEPATITIS B SURFACE ANTIGEN NEGATIVE (NEGATIVE); HEPATITIS C VIRUS ABY INDEX 0.2 INDEX (<0.8); HIV 1&2 SCREEN CENTAUR NEGATIVE (NEGATIVE)
[2018-06-23 18:00] VITALS: BP 133/86
[2018-06-24 06:29] VITALS: BP 122/63
[2018-06-24] MEDS: SERTRALINE HCL 25 MG TABLET PO SCH (08:10)
--- NOTE | 2018-06-24 12:15 | ECGEPIP ---
Stationary ECG Study [facility] Test Date: 2018-06-23 Pat Name: ISSA VAUGHN Department: Room: [place] [address] Gender: F Windows Software Engineer: tavo : 1990 Requested By: Isa Mcdermott Order Number: [id number] Reading MD: Gary Duke Measurements Intervals [place] Rate: 64 P: 3 WI: 155 QRS: 4 QRSD: 93 T: -3 QT: 413 QTc: 427 Interpretive Statements SINUS RHYTHM Comparison tracing not on file Electronically Signed On 06-24-2018 12:09:26 EST by Gary Duke
--- NOTE | 2018-06-24 14:54 | MHIPNPDOC ---
[facility] Progress Note Progress Note DATE OF SERVICE: 06/24/18 HISTORY: Patient is a 28 -year-old , female, who according to Ed report: "Patient arrived following a domestic dispute with her boyfriend. She states that they live together & that he is the father of her baby. She admits that she occasionally uses cannabis, & that she tested positive while here when she delivered her baby 6 weeks ago, prompting a CPS referral. She reports that as a result, there is an "Order of Protection" for both her & her boyfriend, stating that neither may use cannabis within 24 hours of contact with the baby. She says that she woke up this morning & left their bedroom, & that for some reason her boyfriend thought she was angry with him, & that they began arguing after that. During this dispute she says that she locked herself in the bathroom & cut herself. Upon request, she displayed a superficial cut on her left posterior forearm. She denied suicidal intent, but rather said that it was in attempt to get her boyfriend's attention. At some point during this argument her boyfriend left their apartment. She says that upon his return it was evident that he had been using cannabis, resulting in her placing a call to police. She states that when police arrived, her boyfriend pointed out the fact that she had cut herself, which was when she was taken into custody for transport here. She maintains that she is not suicidal, & that she had no intent with this cut. She denies h/o suicide attempts or self injury, insisting that this was attention seeking only. Patient does admit that she has been feeling depressed on and off over the last few weeks. She states that this has included some fleeting thoughts about suicide, never with any plan or intent. She reports seeing her OB ([facility]) 5 days ago for her 6 week post- follow up, during which she was given the screen for depression. She states that she reported the sx of depression, including the fleeting SI, prompting her provider to start her on Zoloft. She states that she began taking it on Thursday, immediately following delivery from her pharmacy. She states that she has been getting adequate rest & that all is well with her baby. She was otherwise unable to identify any obvious stressors or triggers for her depressed moods or SI. 06-22-2018 @ 4:30 pm- Pat Ghotra from [facility] is here. She has advised this copy writer that following interview with patient's boyfriend, it was determined that the 3 children (including the baby) are safe to stay with him at home. She is now here meeting with patient in P-3. Patient's mother is also present. Ms. Ghotra is aware that patient will not be D/C tonight." VITAL SIGNS: See below. NEW TEST RESULTS: See below CURRENT MEDICATIONS: See below. MENTAL STATUS EXAMINATION: Patient is a 28 year old female, who is alert, cooperative, pleasant, dressed in hospital clothes. Speech: Is normal in rate, rhythm, tone and volume. Language skills are good. Thought processes including: linear and coherent. Thought content: anxious thoughts about being evicted from her apartment, anxious thoughts about her boyfriend not being able to find a job. Description of associations: good Description of abnormal or psychotic thoughts: She is not responding to internal stimuli, she is not delusional, she is anxious and has cognitive distortions, she is not suicidal and not homicidal, she is not violent, nor aggressive. Judgment: poor Insight: limited. Orientation: x 3 Recent and remote memory: intact. Attention span and concentration: good. Language: normal, well structured, fair vocabulary. Fund of knowledge: average Mood: Anxious Affect: congruent with mood, anxious DIAGNOSES: 1. Major Depressive disorder 2. R/O persistent depressive disorder 3. Marihuana use disorder 4. ISAAC 5. R/O substance induced mood disorder ASSESSMENT: patient is very anxious about her future, since she says her BF wants to establish his own bsiness, fixing cell phones but she is not sure that is going to work. she also needs to get a job. she's worried about being evicted from her apartment but she is not suicidal. She can work those issues as an outpatient with her BF. her marihuana use problem, seems not to be a problem for her, she is not insightful about CPS being involved, that her children could be taken away from her. MANAGEMENT PLAN: Increase Zoloft to 50 mgs today and to 75 mgs tomorrow TIME SPENT: 20 minutes. Vital Signs Vital Signs Date Time Temp Pulse Resp B/P (MAP) Pulse Ox O2 Delivery O2 Flow Rate FiO2 06/24/18 06:29 97.5 54 14 122/63 (82) 06/23/18 08:17 Room Air 06/22/18 21:50 97 Current Medications Current Medications Acetaminophen (Tylenol Tab) 650 mg Q6HP PRN PO HEADACHE or DISCOMFORT; Start 06/22/18 at 18:45 Al Hydrox/Mg Hydrox/Simethicone (Mylanta) 30 ml Q4HP PRN PO HEARTBURN/INDIGESTION; Start 06/22/18 at 18:45 Home Med (Med Rec Complete!) ASDIRECTED XX ; Start 06/22/18 at 18:00; Stop 06/22/18 at 18:00; Status DC Hydroxyzine HCl (Atarax) 10 mg BIDP PRN PO ANXIETY/AGITATION; Start 06/23/18 at 13:15 Magnesium Hydroxide (Milk Of Magnesia) 30 ml DAILYPRN PRN PO CONSTIPATION; Start 06/22/18 at 18:45 Olanzapine (ZyPREXA ZYDIS) 5 mg Q4HP PRN PO ANXIETY/AGITATION; Start 06/22/18 at 18:45 Sertraline HCl (Zoloft) 25 mg DAILY PO Last administered on 06/24/18at 08:10; Start 06/23/18 at 09:00; Stop 06/24/18 at 13:13; Status DC Sertraline HCl (Zoloft) 50 mg DAILY PO ; Start 06/25/18 at 09:00 Trazodone HCl (Desyrel) 50 mg QHSP PRN PO INSOMNIA; Start 06/23/18 at 13:15 Allergies Coded Allergies: Cephalosporins (Verified Allergy, Mild, IRRITABILITY, rash, 12/25/16) Dust (Verified Allergy, Unknown, 10/29/11) SADE ALTAMIRANO MD Jun 24, 2018 14:49
[2018-06-24] MEDS ORDERED: SERTRALINE HCL 25 MG TABLET PO ONE (15:00)
[2018-06-24] MEDS ORDERED: HYDR-643 PO (17:52)
[2018-06-24] MEDS ORDERED: TRAZO50TA PO (17:52)
[2018-06-24] MEDS ORDERED: SERT50TA PO (17:53)
[2018-06-24 18:00] VITALS: BP 120/73
[2018-06-25 06:08] VITALS: BP 129/74
[2018-06-25] MEDS ORDERED: SERTRALINE HCL 50 MG TAB PO SCH (09:00)
[2018-06-25] MEDS ORDERED: SERTRALINE HCL 25 MG TABLET PO SCH (09:00)
--- NOTE | 2018-07-12 22:15 | MHDSPDOC ---
[facility] Discharge Summary Discharge Summary DATE OF ADMISSION: Jun 22, 2018 at 18:36 DATE OF DISCHARGE: Jun 25, 2018 at 10:25 DISCHARGE DIAGNOSES: 1. Major Depressive disorder 2. R/O persistent depressive disorder 3. Marihuana use disorder 4. ISAAC 5. R/O substance induced mood disorder REASON FOR ADMISSION: Patient is a 28 -year-old , female, who according to Ed report: "Patient arrived following a domestic dispute with her boyfriend. She states that they live together & that he is the father of her baby. She admits that she occasionally uses cannabis, & that she tested positive while here when she delivered her baby 6 weeks ago, prompting a CPS referral. She reports that as a result, there is an "Order of Protection" for both her & her boyfriend, stating that neither may use cannabis within 24 hours of contact with the baby. She says that she woke up this morning & left their bedroom, & that for some reason her boyfriend thought she was angry with him, & that they began arguing after that. During this dispute she says that she locked herself in the bathroom & cut herself. Upon request, she displayed a superficial cut on her left posterior forearm. She denied suicidal intent, but rather said that it was in attempt to get her boyfriend's attention. At some point during this argument her boyfriend left their apartment. She says that upon his return it was evident that he had been using cannabis, resulting in her placing a call to police. She states that when police arrived, her boyfriend pointed out the fact that she had cut herself, which was when she was taken into custody for transport here. She maintains that she is not suicidal, & that she had no intent with this cut. She denies h/o suicide attempts or self injury, insisting that this was attention seeking only. Patient does admit that she has been feeling depressed on and off over the last few weeks. She states that this has included some fleeting thoughts about suicide, never with any plan or intent. She reports seeing her OB ([facility]) 5 days ago for her 6 week post- follow up, during which she was given the screen for depression. She states that she reported the sx of depression, including the fleeting SI, prompting her provider to start her on Zoloft. She states that she began taking it on Thursday, immediately following delivery from her pharmacy. She states that she has been getting adequate rest & that all is well with her baby. She was otherwise unable to identify any obvious stressors or triggers for her depressed moods or SI. 06-22-2018 @ 4:30 pm- Pat Ghotra from [facility] is here. She has advised this manual writer that following interview with patient's boyfriend, it was determined that the 3 children (including the baby) are safe to stay with him at home. She is now here meeting with patient in P-3. Patient's mother is also present. Ms. Ghotra is aware that patient will not be D/C tonight." CONSULTANTS INVOLVED: None TREATMENT AND PROGRESS ON THE UNIT : Patient adamantly denied being suicidal, being homicidal and she certainly was not psychotic, she was not responding to internal stimuli. She was very anxious, she was afraid that her boyfriend was not going to be able to get a job, she was worried about not making ends meet. About not being able to pay for their apartment. She knew she had to get a job in order to keep up with the expenses. Her boyfriend had told her that he wanted to start his own business, fixing cell phones but she was not sure if this was on a work. Patient seems to be overwhelmed, apparently her relationship is not going that well with her boyfriend, she says that they have problems but she loves him and he is the father of her child and she has decided to stay with him. She is aware of her depression and she says that she wants therapy and wants to continue receiving medications for depression. She thinks that it might benefit her and benefit her boyfriend if they start going to therapy (both of them, individually and for couple/marriage counseling). She doesn't think that her marijuana use is a problem although [facility] is already involved in her case. It is not only her who smokes marijuana, her boyfriend does to and apparently they haven't been able to make major changes about this. Patient was very anxious, was mildly depressed but she was not suicidal, not homicidal and not psychotic HOSPITAL COURSE: As above DISCHARGE ASSESSMENT: Patient was not homicidal, not suicidal and not psychotic MENTAL STATUS EXAMINATION ON DISCHARGE: Patient is a 28 year old female, who is alert, cooperative, pleasant, dressed in hospital clothes. Speech: Is normal in rate, rhythm, tone and volume. Language skills are good. Thought processes including: linear and coherent. Thought content: anxious thoughts about being evicted from her apartment, anxious thoughts about her boyfriend not being able to find a job. Description of associations: good Description of abnormal or psychotic thoughts: She is not responding to internal stimuli, she is not delusional, she is anxious and has cognitive distortions, she is not suicidal and not homicidal, she is not violent, nor aggressive. Judgment: poor Insight: limited. Orientation: x 3 Recent and remote memory: intact. Attention span and concentration: good. Language: normal, well structured, fair vocabulary. Fund of knowledge: average Mood: Anxious Affect: congruent with mood, anxious DIAGNOSES: 1. Major Depressive disorder 2. R/O persistent depressive disorder 3. Marihuana use disorder 4. ISAAC 5. R/O substance induced mood disorder ASSESSMENT: patient is very anxious about her future, since she says her BF wants to establish his own bsiness, fixing cell phones but she is not sure that is going to work. she also needs to get a job. she's worried about being evicted from her apartment but she is not suicidal. She can work those issues as an outpatient with her BF. her marihuana use problem, seems not to be a problem for her, she is not insightful about CPS being involved, that her children could be taken away from her. MEDICATIONS ON DISCHARGE: Scheduled Sertraline Hcl (Sertraline HCl) 50 Mg Tab, 75 MG PO DAILY for depression, #11 patient should receive 1.5 tablets Scheduled PRN Hydroxyzine HCl (Hydroxyzine HCl) 10 Mg Tab, 10 MG PO BIDP PRN for ANXIETY/AGITATION, #14 Trazodone HCl (Trazodone HCl) 50 Mg Tab, 50 MG PO QHSP PRN for INSOMNIA, #7 PLAN/FOLLOWUP ARRANGEMENTS: Follow Up Care Education Label * Mental Health Appt 1 * Mental Health [facility] * Established With This Provider Yes * Therapist CAMACHO RILEY * Date Jul 01, 2018 * Time 08:00 * Follow Up Care Education Label * Medical * Medical Follow Up [facility] * Established With This Provider No * Therapist Not Specified * Date Jul 09, 2018 * Time 14:00 * Additional information Please arrive 15 minutes prior to your appointment time with a valid photo ID and list of medications. Follow Up Care Education Label * Chemical Dependency Appt1 * Additional information [facility] in hours Thursday - Thursday 8-[address] [place] [address] [facility] in hours Thursday -Thursday [phone] [place] [address] [facility] [employer] Thursday 9-12 and 1-4 Thursday and 10-12 and 1-14 [place] [id number] The amount of time spent in the coordination of care for this patient was approximately 30 minutes. Medications Scheduled Sertraline Hcl (Sertraline HCl) 50 Mg Tab, 75 MG PO DAILY for depression, #11 patient should receive 1.5 tablets Scheduled PRN Hydroxyzine HCl (Hydroxyzine HCl) 10 Mg Tab, 10 MG PO BIDP PRN for ANXIETY/AGITATION, #14 Trazodone HCl (Trazodone HCl) 50 Mg Tab, 50 MG PO QHSP PRN for INSOMNIA, #7 Allergies Coded Allergies: Cephalosporins (Verified Allergy, Mild, IRRITABILITY, rash, 12/25/16) Dust (Verified Allergy, Unknown, 10/29/11) SADE ALTAMIRANO MD Jul 12, 2018 22:04
== END 2018-06-25 10:25 | disposition home or self-care (01) | DRG 751 ==
LOC: M ED 10:09 → M ED INP 18:36 → M PSY 21:10
PROVIDERS: ADMIT Psychiatry & Neurology Psychiatry; ATTEND Psychiatry & Neurology Psychiatry
DX: F33.9 Major depressive disorder, recurrent, unspecified (principal); F12.188 Cannabis abuse with other cannabis-induced disorder; Z88.1 Allergy status to other antibiotic agents; F34.1 Dysthymic disorder; Z91.5 Personal history of self-harm; Z79.899 Other long term (current) drug therapy; Z91.048 Other nonmedicinal substance allergy status; F41.1 Generalized anxiety disorder

== ENCOUNTER 2018-08-05 04:17 | Emergency (ER) | payer MEDICAID, OTHER ==
[~2018-08-05] VITALS: Ht 162.6 cm; Wt 70.0 kg
[~2018-08-05 04:17] MED LIST changes: +HYDR-643 PO; +SERT50TA PO; +TRAZO50TA PO; +ZOLO25TA PO
[2018-08-05 05:01] LABS: BASO % 0.2 % (0.0-1.0); EOS # 0.1 10^3/uL (0.0-0.50); EOS % 1.2 % (0.0-3.0); HEMATOCRIT 37.2 % (36.0-47.0); HEMOGLOBIN 12.3 g/dl (12.0-15.5); LYMPH # 2.3 10^3/uL (1.5-6.5); LYMPH % 21.3 % (24.0-44.0); MEAN CORPUSCULAR HEMOGLOBIN 28.5 pg (27.0-33.0); MEAN CORPUSCULAR HGB CONC 33.1 g/dl (32.0-36.5); MEAN CORPUSCULAR VOLUME 86.3 fl (80.0-96.0); MONO # 0.6 10^3/uL (0.0-0.8); MONO % 5.6 % (0.0-5.0); NEUTROPHILS # 7.7 10^3/uL (1.8-7.7); NEUTROPHILS % 71.4 % (36.0-66.0); PLATELET COUNT, AUTOMATED 318 10^3/uL (150-450); RED BLOOD COUNT 4.31 10^6/uL (4.00-5.40); WHITE BLOOD COUNT 10.7 10^3/uL (4.0-10.0)
[2018-08-05 05:30] LABS: ALBUMIN 3.9 GM/DL (3.2-5.2); ALT/SGPT 17 U/L (12-78); BILIRUBIN,DIRECT 0.2 MG/DL (0.0-0.2); BILIRUBIN,TOTAL 0.9 MG/DL (0.2-1.0); BLOOD UREA NITROGEN 7 MG/DL (7-18); CALCIUM LEVEL 8.8 MG/DL (8.5-10.1); CARBON DIOXIDE LEVEL 19 MEQ/L (21-32); CHLORIDE LEVEL 112 MEQ/L (98-107); CREATININE FOR GFR 0.58 MG/DL (0.55-1.30); GLOMERULAR FILTRATION RATE > 60.0 (>60); GLUCOSE, FASTING 123 MG/DL (70-100); LIPASE 60 U/L (73-393); POTASSIUM SERUM 3.9 MEQ/L (3.5-5.1); SODIUM LEVEL 142 MEQ/L (136-145); TOTAL PROTEIN 7.1 GM/DL (6.4-8.2)
[2018-08-05 06:04] LABS: HCG, SERUM QUALITATIVE POSITIVE (NEGATIVE)
[2018-08-05] MEDS ORDERED: NS 1,000 ML IV ONE (06:30)
[2018-08-05] MEDS ORDERED: ONDANSETRON 4MG/2ML VIAL (J2405) IV ONE (06:30)
[2018-08-05 07:05] LABS: HCG, SERUM QUANTITATIVE 14714 MIU/ML
--- NOTE | 2018-08-05 08:33 | REP ---
Emergency obstetric first trimester ultrasound: History: Abdominal pain and nausea. Findings: Transabdominal scanning reveals a diamniotic monochorionic twin gestation. No subchorionic hemorrhage is seen. There is a 1.8 cm cyst in the maternal left ovary consistent with corpus luteum. heart rate for fetus A is recorded at 95 beats per minute and that for fetus B is recorded at 91 beats per minute. The crown-rump length of the embryonic pole for fetus A is 0.4 cm, 6 weeks 0 days. The crown-rump length of the embryonic pole for fetus B is 0.3 cm, 5 weeks 6 days. Impression: Viable diamniotic monochorionic twin intrauterine gestation at 6 weeks 0 days by crown-rump length. No complication is identified. Electronically Signed by Yossi Castaneda MD 08/05/2018 09:58 A
[2018-08-05] MEDS ORDERED: ONDA4TAB6 PO (08:51)
[2018-08-05] MEDS ORDERED: METOCLOPRAMIDE INJ 10MG/2ML VIAL (J2765) IV ONE (09:00)
[2018-08-05 09:22] VITALS: BP 100/52
== END 2018-08-05 09:23 | disposition home or self-care (01) ==
LOC: EDUNIT# 04:17 → EDBD 04:17 → M ED 04:17
DX: O21.0 Mild hyperemesis gravidarum (principal); O30.031 Twin pregnancy, monochorionic/diamniotic, first trimester; O99.341 Other mental disorders complicating pregnancy, first trimester; F32.9 Major depressive disorder, single episode, unspecified; Z3A.01 Less than 8 weeks gestation of pregnancy; Z79.899 Other long term (current) drug therapy; Z88.1 Allergy status to other antibiotic agents
CPT/HCPCS: 76801; 76802; 80048; 80076; 83690; 84702; 84703; 85025; 93976; 96374; 96375; 99284; J2405; J2765

== ENCOUNTER 2021-05-16 06:06 | Emergency (ER) | payer MEDICAID, OTHER ==
[~2021-05-16] VITALS: Ht 160 cm; Wt 70.5 kg
[~2021-05-16 06:06] MED LIST changes: +SERT-141 PO; -SERT50TA PO; +TRAZ1TAB10 PO; -TRAZO50TA PO
[2021-05-16] MEDS ORDERED: NS 1,000 ML IV ONE (06:55)
[2021-05-16] MEDS ORDERED: ONDANSETRON 4MG/2ML VIAL IV ONE (06:55)
[2021-05-16 06:58] LABS: BASO % 0.2 % (0.0-1.0); EOS # 0.2 10^3/uL (0.0-0.5); EOS % 1.2 % (0.0-3.0); HEMATOCRIT 31.3 % (36.0-47.0); HEMOGLOBIN 9.9 g/dl (12.0-15.5); LYMPH # 2.1 10^3/uL (1.5-5.0); LYMPH % 14.6 % (24.0-44.0); MEAN CORPUSCULAR HEMOGLOBIN 26.5 pg (27.0-33.0); MEAN CORPUSCULAR HGB CONC 31.6 g/dl (32.0-36.5); MEAN CORPUSCULAR VOLUME 83.7 fl (80.0-96.0); MONO # 0.8 10^3/uL (0.0-0.8); MONO % 5.8 % (2.0-8.0); NEUTROPHILS % 77.8 % (36.0-66.0); PLATELET COUNT, AUTOMATED 326 10^3/uL (150-450); RED BLOOD COUNT 3.74 10^6/uL (4.00-5.40); WHITE BLOOD COUNT 14.1 10^3/uL (4.0-10.0)
[2021-05-16 07:20] VITALS: BP 118/69
[2021-05-16 07:25] LABS: ALBUMIN 3.2 GM/DL (3.2-5.2); ALT/SGPT 19 U/L (12-78); BILIRUBIN,DIRECT 0.1 MG/DL (0.0-0.2); BILIRUBIN,TOTAL 0.3 MG/DL (0.2-1.0); BLOOD UREA NITROGEN 9 MG/DL (7-18); CARBON DIOXIDE LEVEL 25 MEQ/L (21-32); CHLORIDE LEVEL 112 MEQ/L (98-107); CREATININE FOR GFR 0.63 MG/DL (0.55-1.30); GLOMERULAR FILTRATION RATE > 60.0 (>60); GLUCOSE, FASTING 124 MG/DL (70-100); LIPASE 74 U/L (73-393); POTASSIUM SERUM 3.9 MEQ/L (3.5-5.1); SODIUM LEVEL 142 MEQ/L (136-145); TOTAL PROTEIN 6.8 GM/DL (6.4-8.2)
[2021-05-16] MEDS ORDERED: ISOVUE-370 76% 100ML VIAL As Ordered ONE (07:41)
[2021-05-16] MEDS ORDERED: CAPSAICIN 0.025% CR 60 GM TOP ONE (08:00)
[2021-05-16 09:03] LABS: AMPHETAMINES LEVEL URINE NEGATIVE (NEGATIVE); BARBITURATES URINE NEGATIVE (NEGATIVE); BENZODIAZEPINES URINE NEGATIVE (NEGATIVE); CANNABINOIDS URINE POSITIVE (NEGATIVE); COCAINE METABOLITE URINE NEGATIVE (NEGATIVE); METHADONE URINE NEGATIVE (NEGATIVE); OPIATES URINE NEGATIVE (NEGATIVE); PHENCYCLIDINE URINE NEGATIVE (NEGATIVE)
== END 2021-05-16 09:46 | disposition left against medical advice (07) ==
LOC: M ED 06:06
DX: R10.9 Unspecified abdominal pain (principal); R11.2 Nausea with vomiting, unspecified; R19.7 Diarrhea, unspecified; Z53.9 Procedure and treatment not carried out, unspecified reason; N83.202 Unspecified ovarian cyst, left side; F32.A Depression, unspecified; F41.9 Anxiety disorder, unspecified; Z88.8 Allergy status to other drugs, medicaments and biological substances; Z79.899 Other long term (current) drug therapy; F17.200 Nicotine dependence, unspecified, uncomplicated
CPT/HCPCS: 74177; 76856; 80048; 80076; 80307; 81001; 83690; 84702; 85025; 87086; 93976; 96361; 96374; 99284; J2405; Q9967

== ENCOUNTER 2021-11-11 16:11 | Emergency (ER) | payer MEDICAID, OTHER ==
[~2021-11-11] VITALS: Ht 157.5 cm; Wt 76.8 kg
[2021-11-11] MEDS ORDERED: DOXY100T (16:30)
[2021-11-11 19:50] VITALS: BP 121/66
== END 2021-11-11 21:32 | disposition left against medical advice (07) ==
LOC: M ED 16:11
DX: Z53.21 Procedure and treatment not carried out due to patient leaving prior to being seen by health care provider (principal)

== ENCOUNTER 2022-01-09 12:09 | Emergency (ER) | payer OTHER ==
[~2022-01-09] VITALS: Ht 160 cm; Wt 78.6 kg
[~2022-01-09 12:09] MED LIST changes: +DOXY100T
[2022-01-09 13:24] VITALS: BP 114/62
== END 2022-01-09 13:28 | disposition home or self-care (01) ==
LOC: M ED 12:09
DX: S01.01XA Laceration without foreign body of scalp, initial encounter (principal); W22.8XXA Striking against or struck by other objects, initial encounter; F17.200 Nicotine dependence, unspecified, uncomplicated; Z88.8 Allergy status to other drugs, medicaments and biological substances; J30.89 Other allergic rhinitis

== ENCOUNTER 2022-01-21 11:45 | Emergency (ER) | payer OTHER ==
[~2022-01-21] VITALS: Ht 160 cm; Wt 79.3 kg
[2022-01-21 11:45] VITALS: BP 112/62
== END 2022-01-21 13:10 | disposition left against medical advice (07) ==
LOC: M ED 11:45
DX: Z53.21 Procedure and treatment not carried out due to patient leaving prior to being seen by health care provider (principal)

== ENCOUNTER 2022-01-23 08:57 | Emergency (ER) | payer OTHER ==
[~2022-01-23] VITALS: Ht 160 cm; Wt 80.3 kg
[2022-01-23 08:57] VITALS: BP 108/56
== END 2022-01-23 09:00 | disposition left against medical advice (07) ==
LOC: M ED 08:57
DX: Z53.21 Procedure and treatment not carried out due to patient leaving prior to being seen by health care provider (principal)

== ENCOUNTER 2022-02-05 08:44 | Emergency (ER) | payer OTHER ==
[~2022-02-05] VITALS: Ht 160 cm; Wt 78.5 kg
[2022-02-05 08:44] VITALS: BP 131/73
== END 2022-02-05 11:29 | disposition left against medical advice (07) ==
LOC: M ED 08:44
DX: Z53.21 Procedure and treatment not carried out due to patient leaving prior to being seen by health care provider (principal)

== ENCOUNTER → 2022-10-14 | Outpatient (CLI) | payer OTHER | LOC: M WUC 10:11 | PROVIDERS: ATTEND Physician Assistant | DX: S29.011A Strain of muscle and tendon of front wall of thorax, initial encounter (principal); X58.XXXA Exposure to other specified factors, initial encounter; Y92.9 Unspecified place or not applicable; Y93.9 Activity, unspecified; Y99.9 Unspecified external cause status ==

== ENCOUNTER → 2023-02-27 | Outpatient (CLI) | payer MEDICAID | LOC: M OUTALCOH 07:27 | PROVIDERS: ATTEND Psychiatry & Neurology Psychiatry | DX: Z03.89 Encounter for observation for other suspected diseases and conditions ruled out (principal) ==

== ENCOUNTER → 2023-04-07 | Outpatient (RCR) | payer MEDICAID | LOC: M OUTALCOH 03-11 09:37 | PROVIDERS: ATTEND Psychiatry & Neurology Psychiatry | DX: F12.20 Cannabis dependence, uncomplicated (principal) ==

== ENCOUNTER 2023-05-06 10:39 | Outpatient (RCR) | payer MEDICAID | END 2023-05-07 | LOC: M OUTALCOH 10:39 | PROVIDERS: ATTEND Psychiatry & Neurology Psychiatry | DX: F12.20 Cannabis dependence, uncomplicated (principal) ==

== ENCOUNTER 2023-06-03 14:00 | Outpatient (RCR) | payer MEDICAID | END 2023-06-07 | LOC: M OUTALCOH 14:00 | PROVIDERS: ATTEND Psychiatry & Neurology Psychiatry | DX: F12.20 Cannabis dependence, uncomplicated (principal) ==

== ENCOUNTER → 2023-07-08 | Outpatient (RCR) | payer MEDICAID | LOC: M OUTALCOH 06-15 14:00 | PROVIDERS: ATTEND Psychiatry & Neurology Psychiatry | DX: F12.20 Cannabis dependence, uncomplicated (principal) ==

== ENCOUNTER 2023-08-05 15:13 | Outpatient (RCR) | payer MEDICAID | END 2023-08-06 | LOC: M OUTALCOH 15:13 | PROVIDERS: ATTEND Psychiatry & Neurology Psychiatry | DX: F12.20 Cannabis dependence, uncomplicated (principal) ==

== ENCOUNTER 2023-10-05 14:00 | Outpatient (RCR) | payer MEDICAID | END 2023-10-06 | LOC: M OUTALCOH 14:00 | PROVIDERS: ATTEND Psychiatry & Neurology Psychiatry | DX: F12.20 Cannabis dependence, uncomplicated (principal) ==

== ENCOUNTER 2023-10-21 12:59 | Outpatient (RCR) | payer MEDICAID | END 2023-11-06 | LOC: M OUTALCOH 12:59 | PROVIDERS: ATTEND Psychiatry & Neurology Psychiatry | DX: F12.20 Cannabis dependence, uncomplicated (principal) ==

== ENCOUNTER 2023-11-30 16:00 | Outpatient (RCR) | payer MEDICAID ==
[~2023-11-30 16:00] MED LIST changes: +ONDA-282 PO; -ONDA4TAB6 PO
== END 2023-12-06 ==
LOC: M OUTALCOH 16:00
PROVIDERS: ATTEND Psychiatry & Neurology Psychiatry
DX: F12.20 Cannabis dependence, uncomplicated (principal)

== ENCOUNTER 2023-12-29 08:52 | Outpatient (RCR) | payer MEDICAID | END 2024-01-06 | LOC: M OUTALCOH 08:52 | PROVIDERS: ATTEND Psychiatry & Neurology Psychiatry | DX: F12.20 Cannabis dependence, uncomplicated (principal) ==

== ENCOUNTER 2024-12-26 09:02 | Emergency (ER) | payer MEDICAID, OTHER ==
[2024-12-26] MEDS ORDERED: AMOX875T2 PO (10:31)
[2024-12-26] MEDS: BOOSTRIX VACCINE (TETANUS/DIPHTH/ACEL. PERTUSSIS) 0.5 ML SYR IM.IMMUN ONE (10:37)
[2024-12-26 10:49] VITALS: BP 107/60; TEMP 97.6; O2SAT 99
== END 2024-12-26 11:07 | disposition home or self-care (01) ==
LOC: M ED 09:02
DX: S70.11XA Contusion of right thigh, initial encounter (principal); S70.311A Abrasion, right thigh, initial encounter; W54.0XXA Bitten by dog, initial encounter; Y92.9 Unspecified place or not applicable; Y93.9 Activity, unspecified; Y99.0 Civilian activity done for income or pay; J30.89 Other allergic rhinitis; Z88.8 Allergy status to other drugs, medicaments and biological substances

== ENCOUNTER 2025-01-22 12:16 | Inpatient (IN) | payer OTHER ==
[~2025-01-22] VITALS: Ht 157.5 cm; Wt 82.0 kg
[~2025-01-22 12:16] MED LIST changes: +AMOX875T2 PO
[2025-01-22 12:54] LABS: BASO # 0.0 10^3/uL (0.0-0.2); BASO % 0.2 % (0.0-1.0); EOS # 0.1 10^3/uL (0.0-0.5); EOS % 0.4 % (0.0-3.0); LYMPH # 1.3 10^3/uL (1.5-5.0); LYMPH % 9.4 % (24.0-44.0); MONO # 0.6 10^3/uL (0.0-0.8); MONO % 4.6 % (2.0-8.0); NEUTROPHILS # 11.5 10^3/uL (1.5-8.5); NEUTROPHILS % 85.1 % (36.0-66.0); PLATELET COUNT, AUTOMATED 276 10^3/uL (150-450)
[2025-01-22 13:24] LABS: CALCIUM LEVEL 8.2 MG/DL (8.5-10.1); CARBON DIOXIDE LEVEL 20 MMOL/L (20-31); CHLORIDE LEVEL 112 MMOL/L (98-107); CREATININE FOR GFR 0.71 MG/DL (0.55-1.30); GLOMERULAR FILTRATION RATE > 90.0 (>60); MAGNESIUM LEVEL 2.0 MG/DL (1.8-2.4); POTASSIUM SERUM 4.4 MMOL/L (3.5-5.1); SODIUM LEVEL 145 MMOL/L (136-145)
[2025-01-22 13:26] LABS: FREE T4 1.17 NG/DL (0.89-1.76)
[2025-01-22 13:36] LABS: HCG, SERUM QUALITATIVE NEGATIVE (NEGATIVE)
[2025-01-22 14:05] LABS: ALT/SGPT 15 U/L (7.0-40); AST/SGOT 27 U/L (<34)
[2025-01-22] MEDS: NS (Normal Saline) 0.9% 1,000 ML IV ONE ×2 (14:14→15:23)
[2025-01-22 14:33] LABS: AMPHETAMINES LEVEL URINE NEGATIVE (NEGATIVE); BARBITURATES URINE NEGATIVE (NEGATIVE); BENZODIAZEPINES URINE NEGATIVE (NEGATIVE); COCAINE METABOLITE URINE NEGATIVE (NEGATIVE); METHADONE URINE NEGATIVE (NEGATIVE); OPIATES URINE NEGATIVE (NEGATIVE); PHENCYCLIDINE URINE NEGATIVE (NEGATIVE)
[2025-01-22 14:36] LABS: CANNABINOIDS URINE POSITIVE (NEGATIVE)
[2025-01-22 15:32] LABS: KETONE, URINE AUTO RFX 2+ mg/dL (NEGATIVE); LEUKOCYTE ESTERASE UR AUTO RFX NEGATIVE (NEGATIVE); MUCUS, URINE RFX SMALL (NEGATIVE); RBC, URINE AUTO RFX 2 /HPF (0-3); SQUAM EPITHELIAL CELL UR AURFX 6 /HPF (0-6); WBC, URINE AUTO RFX 5 /HPF (0-3)
[2025-01-22 15:36] LABS: NITRITE, URINE AUTO RFX POSITIVE (NEGATIVE)
[2025-01-22 16:28] LABS: ERYTHROCYTE SEDIMENTATION RATE 22 mm/hr (0-20)
[2025-01-22] MEDS ORDERED: METR-265 PO (16:32)
[2025-01-22] MEDS ORDERED: FLUC150T9 PO (16:32)
[2025-01-22] MEDS ORDERED: HOME MED LIST COMPLETE! XX SCH (16:35)
[2025-01-22] MEDS: LR 1,000 ML IV ONE ×2 (16:35→19:29)
[2025-01-22] MEDS: CIPROFLOXACIN 400 MG in IV 1 EA IV ONE (16:35)
[2025-01-22 16:38] LABS: C REACTIVE PROTEIN QUANTITATIV < 0.50 MG/DL (<1.0)
[2025-01-22] MEDS ORDERED: DIPHENOXYLATE HCL/ATROPINE 2.5 MG/0.025 MG TABLET PO ONE (18:00)
[2025-01-22] MEDS ORDERED: NALOXONE INJ 0.4 MG/1 ML VIAL IV PRN (18:10)
[2025-01-22] MEDS ORDERED: ACETAMINOPHEN 325 MG TAB PO PRN (18:10)
[2025-01-22] MEDS ORDERED: PERCOCET 5MG/325MG TAB PO PRN (18:10)
[2025-01-22 18:18] LABS: Trichomonas vaginalis (AMP) NOT DETECTED (NEGATIVE)
[2025-01-22] MEDS: ONDANSETRON 4MG 2ML VIAL IV ONE (18:40)
[2025-01-22] MEDS: PANTOPRAZOLE 40MG VIAL IV ONE (18:40)
[2025-01-22 18:41] LABS: GC DNA AMPLIFICATION NEGATIVE (NEGATIVE)
[2025-01-22] MEDS: KETOROLAC 30 MG/ML 1 ML VIAL IV ONE (18:41)
[2025-01-22] MEDS: CALCIUM GLUCONATE 1,000 MG in DEXTROSE 5% (D5W) MINI-BAG PLU 100 ML IV ONE (20:42)
[2025-01-22] MEDS: NS 0.45% 1,000 ML IV SCH (22:20)
[2025-01-22] MEDS: ONDANSETRON 4MG 2ML VIAL IV PRN (23:11)
[2025-01-23 05:15] VITALS: TEMP 97
[2025-01-23] MEDS: CIPROFLOXACIN 400 MG in IV 1 EA IV SCH (05:55)
[2025-01-23 07:30] VITALS: BP 90/51; O2SAT 99
[2025-01-23] MEDS: PANTOPRAZOLE 40MG TAB PO SCH (08:38)
[2025-01-23] MEDS: LR 1,000 ML IV ONE ×2 (08:39→09:45)
[2025-01-23] MEDS ORDERED: NS (Normal Saline) 0.9% 1,000 ML IV SCH (08:45)
[2025-01-23 08:52] LABS: BASO # 0.0 10^3/uL (0.0-0.2); BASO % 0.2 % (0.0-1.0); EOS # 0.0 10^3/uL (0.0-0.5); EOS % 0.2 % (0.0-3.0); LYMPH # 1.7 10^3/uL (1.5-5.0); LYMPH % 14.3 % (24.0-44.0); MONO # 1.0 10^3/uL (0.0-0.8); MONO % 8.4 % (2.0-8.0); NEUTROPHILS # 9.3 10^3/uL (1.5-8.5); NEUTROPHILS % 76.6 % (36.0-66.0); PLATELET COUNT, AUTOMATED 248 10^3/uL (150-450)
[2025-01-23 08:59] LABS: C REACTIVE PROTEIN QUANTITATIV < 0.50 MG/DL (<1.0)
[2025-01-23 09:06] LABS: ERYTHROCYTE SEDIMENTATION RATE 11 mm/hr (0-20)
[2025-01-23 09:24] LABS: ESTIMATED AVERAGE GLUCOSE 100.0 MG/DL (60-110)
[2025-01-23] MEDS ORDERED: NS 0.45% 1,000 ML IV ONE (11:15)
[2025-01-23] MEDS ORDERED: CALCIUM GLUCONATE 1,000 MG in DEXTROSE 5% (D5W) MINI-BAG PLU 100 ML IV ONE (11:30)
[2025-01-23 11:33] LABS: HEPATITIS C VIRUS ABY INDEX < 0.02 INDEX (<0.8)
[2025-01-23 11:36] LABS: CALCIUM LEVEL 7.7 MG/DL (8.5-10.1); CARBON DIOXIDE LEVEL 26 MMOL/L (20-31); CHLORIDE LEVEL 106 MMOL/L (98-107); CHOLESTEROL LEVEL 119 MG/DL (<200); CHOLESTEROL RISK RATIO 3.02 (<5); CREATININE FOR GFR 0.58 MG/DL (0.55-1.30); GLOMERULAR FILTRATION RATE > 90.0 (>60); LDL CHOLESTEROL 67.2 MG/DL (<100); MAGNESIUM LEVEL 1.5 MG/DL (1.8-2.4); NON-HDL-C 79.6 MG/DL; POTASSIUM SERUM 3.2 MMOL/L (3.5-5.1); SODIUM LEVEL 142 MMOL/L (136-145); TRIGLYCERIDES LEVEL 62 MG/DL (<150)
[2025-01-23] MEDS ORDERED: POTASSIUM CHLORIDE 10MEQ SR TABLET PO ONE (12:00)
[2025-01-23] MEDS ORDERED: CALCIUM CARBONATE 500 MG CHEW U/D PO SCH (12:30)
[2025-01-23] MEDS ORDERED: MAG SULF 1GM/100ML (MAG RUN) 1 GM in IV 1 EA IV SCH (13:00)
[2025-01-23] MEDS ORDERED: CIPR-249 PO (13:07)
[2025-01-23] MEDS ORDERED: KCL 20MEQ IN D5W 1000ML 1,000 ML IV SCH (15:00)
[2025-01-27 10:04] LABS: BORRELIA SPECIES DNA NOT DETECTED (NOT DETECT)
== END 2025-01-23 12:57 | disposition left against medical advice (07) | DRG 204 ==
LOC: EDBD 12:16 → M ED 12:16 → M ED INP 18:29
PROVIDERS: ADMIT General Practice; ATTEND General Practice
DX: I95.1 Orthostatic hypotension (principal); R00.1 Bradycardia, unspecified; D64.9 Anemia, unspecified; E66.9 Obesity, unspecified; E86.1 Hypovolemia; F12.90 Cannabis use, unspecified, uncomplicated; F41.8 Other specified anxiety disorders; K52.9 Noninfective gastroenteritis and colitis, unspecified; N39.0 Urinary tract infection, site not specified; Z68.33 Body mass index [BMI] 33.0-33.9, adult; N76.0 Acute vaginitis; F32.A Depression, unspecified; F17.290 Nicotine dependence, other tobacco product, uncomplicated; E83.51 Hypocalcemia; Z88.8 Allergy status to other drugs, medicaments and biological substances; Z79.899 Other long term (current) drug therapy; R11.2 Nausea with vomiting, unspecified